=== PATIENT | male | born 1960 | race Caucasian/White ===

== ENCOUNTER 2020-03-22 15:15 | Inpatient (IN) | payer OTHER ==
[~2020-03-22] VITALS: Ht 177.8 cm; Wt 73.4 kg
[2020-03-22 15:19] VITALS: BP 177/147
[2020-03-22 16:10] LABS: ABSOLUTE NEUTROPHILS 4.4 thou/uL (1.4-8.2); BASOPHILS 0.7 % (0.0-2.0); EOSINOPHILS 1.9 % (0.0-3.0); RDW 12.6 % (10.5-14.5); WBC 8.8 thou/uL (4.0-11.0)
[2020-03-22 16:13] LABS: HEMOGLOBIN 18.8 gm/dL (14.0-18.0); MCH 33.4 pg (26.0-34.0); MCHC 34.8 g/dL (28.0-37.0); MCV 96.1 fL (80.0-100.0); MONOCYTES 10.5 % (1.0-8.0); PLATELET COUNT 376 thou/uL (150-400); POLYS 49.9 % (36.0-66.0); RBC 5.62 mil/uL (4.50-6.00)
[2020-03-22 16:14] LABS: ANION GAP 16 mmol/L (7-16); BUN 25 mg/dL (7-18); CALCIUM 9.4 mg/dL (8.5-10.1); CHLORIDE 96 mmol/L (98-107); CO2 21 mmol/L (21-32); CREATININE 1.6 mg/dL (0.7-1.3); GLUCOSE 372 mg/dL (74-106); POTASSIUM 3.9 mmol/L (3.5-5.1); SODIUM 133 mmol/L (136-145)
[2020-03-22 16:23] LABS: TROPONIN-I <0.06 ng/mL (<0.06)
[2020-03-22 18:22] VITALS: BP 141/79
[2020-03-22 20:00] VITALS: BP 143/90
--- NOTE | 2020-03-22 22:41 | NUR ---
PATIENT IS A NEW ADMISSION TO THE UNIT. HE ARRIVED VIA CART FROM THE ER AND WAS ABLE TO AMBULATE TO THE BED WITHOUT INCIDENT. PATIENT IS ALERT AND ORIENTED AND ABLE TO PARTICIPATE IN ADMISSION. INITIALLY PATIENT WAS HESITANT TO STAY OVERNIGHT AND WANTED TO LEAVE AMA, HE FINALLY DECIDED TO "STAY ONE NIGHT". NIH SCORE OF TWO FOR SLURRED SPEECH AND LANGUAGE. NURSE TO COMPLETE ADMISSION AND INITIATE PLAN OF CARE.
[2020-03-22] MEDS ORDERED: ZESTRIL5 MG (22:54)
[2020-03-22] MEDS ORDERED: METFORMIN HCL500 M3 (22:57)
[2020-03-22] MEDS ORDERED: TRESIBA100 UNIT/1 SUBQ (22:58)
[2020-03-23 00:03] VITALS: BP 128/87
[2020-03-23 04:00] VITALS: BP 128/75
[2020-03-23 04:31] LABS: HEMATOCRIT 51.1 % (42.0-52.0); HEMOGLOBIN 17.8 gm/dL (14.0-18.0); MCH 33.2 pg (26.0-34.0); MCHC 34.9 g/dL (28.0-37.0); MCV 95.3 fL (80.0-100.0); RBC 5.36 mil/uL (4.50-6.00); RDW 12.7 % (10.5-14.5)
[2020-03-23 04:58] LABS: ALBUMIN 3.7 g/dL (3.4-5.0); ANION GAP 11 mmol/L (7-16); BUN 24 mg/dL (7-18); CHLORIDE 98 mmol/L (98-107); CHOLESTEROL 267 mg/dL (<200); CO2 28 mmol/L (21-32); CREATININE 1.2 mg/dL (0.7-1.3); GLUCOSE 127 mg/dL (74-106); HDL CHOLESTEROL 44 mg/dL (>40); LDL CHOLESTEROL 191 mg/dL (<100); SGOT 12 U/L (15-37); SGPT 16 U/L (30-65); SODIUM 137 mmol/L (136-145); TC:HDL 6.1 Ratio (Not establshd); TOTAL BILIRUBIN 0.7 mg/dL (0.2-1.0); TOTAL PROTEIN 7.5 g/dL (6.4-8.2); TRIGLYCERIDE 164 mg/dL (<150); VLDL 33 mg/dL (<40)
[2020-03-23 04:59] LABS: SERUM ASSESSMENT Clear
[2020-03-23 08:00] VITALS: BP 127/82
[2020-03-23] MEDS ORDERED: ASPIRIN325 PO (11:20)
[2020-03-23] MEDS ORDERED: LIPITOR 20 MG T20 M1 PO (11:20)
--- NOTE | 2020-03-23 11:34 | NUR ---
ASSUMED CARE AT CHANGE OF SHIFT. PT ALERTX4, ANXIOUS AND EAGER TO LEAVE. EXPLAINED THE NEED TO TAKE MORNING MEDICATIONS AND WAIT FOR NEUROLOGIST AND HOSPITALIST TO ROUND WHICH THEY HAVE WITH RECOMMENDATIONS TO FOLLOW UP WITH AN MRI AND SEE PCP NEXT WEEK. TOLERATED MORNING MEAL. DENIES PAIN, DENIES SOB, NO NOTED SLURRED SPEECH DURING ASSESMENT. WILL DC HOME WITH SELF CARE.
[2020-03-23 11:37] VITALS: BP 127/82
--- NOTE | 2020-03-24 06:48 | NUR ---
PATIENT D/C PRIOR TO OT INITIATING EVAL
--- NOTE | 2020-03-24 08:12 | EKG ---
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 : 1960 Requested By: Ezequiel Underwood Order Number: [id number] MD: Hima Ledbetter Measurements Intervals [place] Rate: 107 P: 34 WA: 125 QRS: 20 QRSD: 126 T: -12 QT: 341 QTc: 455 Interpretive Statements Sinus tachycardia Right bundle branch block Borderline ST elevation, lateral leads No previous ECG available for comparison Electronically Signed On 03-24-2020 8:12:28 CDT by Hima Ledbetter [email or web address] <ELECTRONICALLY SIGNED> By: Hima Ledbetter MD, FACC 03/24/20 08 174 40 Hima Ledbetter MD, [facility] /EPI
== END 2020-03-23 12:21 | disposition home or self-care (01) | DRG 69 ==
LOC: ER 15:15 → EROBS 17:30 → 2N 19:52
PROVIDERS: Emergency Medicine; ADMIT Internal Medicine; ATTEND Internal Medicine
DX: G45.9 Transient cerebral ischemic attack, unspecified (principal); R47.01 Aphasia; F17.200 Nicotine dependence, unspecified, uncomplicated; R47.1 Dysarthria and anarthria; E11.9 Type 2 diabetes mellitus without complications; E78.5 Hyperlipidemia, unspecified; I99.8 Other disorder of circulatory system; I10 Essential (primary) hypertension; Z79.4 Long term (current) use of insulin; Z79.899 Other long term (current) drug therapy; Z79.84 Long term (current) use of oral hypoglycemic drugs; Z72.89 Other problems related to lifestyle
CPT/HCPCS: 10081